=== PATIENT | female | born 1985 | race African-American/Black ===

== ENCOUNTER 2016-07-14 16:00 | Emergency (ER) | payer OTHER ==
--- NOTE | ~2016-07-14 | CR63 ---
[facility] A Service of [facility] & [facility] RADIOLOGY TEXT RESULTS PATIENT: LISSY AGUILAR LOCATION: [facility] : 83 UNIT #: [id number] AGE: [address]: Ata Payne MD SEX: F ORDER DR: [id number] [facility] [address] [place], [place] [address] [id number] E MR#: [id number] Acc #: [id number] NAME: LISSY AGUILAR. : 1985 SEX: F STUDY DATE/TIME: 07/14/2016 17:02 UNIT: [facility] ROOM: STUDY DESCRIPTION: CR Chest 2 View Attending Physician: Ata Payne M.D. Ordering Physician: Ata Payne M.D. Primary Care Physician: Robinson Valentin M.D. MEDICAL IMAGING REPORT This report is preliminary unless electronic signature is present EXAM PA and lateral chest. DATE OF EXAM 07/14/2016 INDICATIONS Chest tightness and cough for 3 days. COMPARISON Comparison with 04/11/2015. FINDINGS Slight decreased inspiratory volume. No definite acute infiltrate. Heart size stable. Visualized osseous structures are unremarkable. IMPRESSION Decreased inspiratory volume otherwise unremarkable. Dictated by... Huber Boyle M.D. THIS IS AN ELECTRONICALLY VERIFIED REPORT Huber Boyle M.D. at 07/17/2016 8:00 AM MITCH/jd TD: 07/14/2016 23:12 JOB #: [id number] MEDICAL IMAGING REPORT Page 1 of 1 COPY
--- NOTE | ~2016-07-14 | EKG ---
PATIENT: LISSY AGUILAR UNIT #: [id number] Ventricular Rate: 109 BPM Atrial Rate: 109 BPM P-R Interval: 142 ms QRS Duration: 90 ms Q-T Interval: 346 ms QTC Calculation(Bezet): 465 ms P [place]: 56 degrees Calculated R [place]: 85 degrees Calculated T [place]: 11 degrees Diagnosis Line: Sinus tachycardia Diagnosis Line: Otherwise normal ECG Diagnosis Line: When compared with ECG of 17-APR-2015 21:00, Diagnosis Line: No significant change was found Diagnosis Line: Confirmed by BALTA COLE MD ([id number]) on 07/14/2016 Diagnosis Line: 7:24:06 PM INTERPRETING MD: KELSEY HARO
[~2016-07-14 16:00] MED LIST: FAMOTIDINE PO; HYDROCHLOROTHIA25 MG PO; KCL PO; LEXAPRO PO; LOMOTIL TABLET1 TAB PO; LOPRESSOR PO; MEDROL DOSEPAK4 MG PO; METOPROLOL SUCC50 MG PO; NEXIUM PO; PROTONIX PO; TOPROL XL PO
[2016-07-14 16:51] LABS: BASOPHIL# 0.1 X10e3 (0-0.3); BASOPHIL% 0.4 % (0-2.5); EOSINOPHIL# 0.1 X10e3 (0-0.7); EOSINOPHIL% 0.9 % (0.0-7.0); HEMATOCRIT 37.2 % (35.0-45.0); HEMOGLOBIN 11.8 gm/dL (12.0-16.0); LYMPHOCYTE# 2.7 X10e3 (1.0-3.5); LYMPHOCYTE% 22.3 % (17.0-45.0); MEAN CORPUSCULAR HEMOGLOBIN 26.9 PG (28-34); MEAN CORPUSCULAR HGB CONC 31.7 g/dL (30-36); MEAN PLATELET VOLUME 8.9 FL (6.5-11.5); MONOCYTE# 0.6 X10e3 (0-1.0); MONOCYTE% 4.7 % (3.0-12.0); NEUTROPHIL# 8.8 X10e3 (1.5-7.1); NEUTROPHIL% 71.7 % (40-75); PLATELET COUNT 286 X10e3 (140-420); RED BLOOD COUNT 4.37 X10e (3.90-5.30); RED CELL DISTRIBUTION WIDTH 14.7 % (11.0-15.5); WHITE BLOOD COUNT 12.3 X10e3 (4.0-10.5)
[2016-07-14 16:52] LABS: DIFF IND NO
[2016-07-14 17:16] LABS: ALKALINE PHOSPHATASE 55 U/L (32-92); ALT (SGPT) 18 U/L (10-40); AST (SGOT) 16 U/L (10-42); BILIRUBIN,TOTAL 0.7 mg/dL (0.2-2.0); BLOOD UREA NITROGEN 11 mg/dL (9-23); BUN/CREATININE RATIO 13.75; CALCIUM SERUM 9.4 mg/dL (8.4-10.2); CARBON DIOXIDE 25 mmol/L (22-31); CHLORIDE 103 mmol/L (100-111); CREATININE SERUM 0.8 mg/dL (0.6-1.4); GLUCOSE FASTING 86 mg/dL (70-110); POTASSIUM 3.4 mmol/L (3.5-5.1); PROTEIN TOTAL SERUM 7.4 g/dL (6.0-8.3); SODIUM 138 mmol/L (135-145)
[2016-07-14 17:19] LABS: POC - CKMB <1.0 ng/mL (0.0-7.9); POC - TROPONIN <0.05 ng/mL (<=0.05)
[2016-07-14 17:23] LABS: BILIRUBIN, DIRECT <0.1 mg/dL (0.0-0.2); BILIRUBIN,INDIRECT 0.6 mg/dL (0.0-0.9)
[2016-07-14 18:14] LABS: POC - CKMB <1.0 ng/mL (0.0-7.9); POC - TROPONIN <0.05 ng/mL (<=0.05)
== END 2016-07-14 18:51 | disposition home or self-care (01) ==
LOC: CED 16:00
PROVIDERS: Emergency Medicine
DX: R07.89 Other chest pain (principal); M25.512 Pain in left shoulder; R10.9 Unspecified abdominal pain; I10 Essential (primary) hypertension
CPT/HCPCS: 36415; 71020; 80048; 80076; 82553; 83880; 84484; 85025; 85379; 93005; 99284